=== PATIENT | female | born 1975 | race Caucasian/White ===

== ENCOUNTER 2023-09-23 06:00 | Outpatient (RCR) | payer OTHER, SELFPAY | END 2023-10-03 23:59 | disposition home or self-care (01) | LOC: TPT 06:00 | PROVIDERS: Visit Provider Family Medicine | DX: M25.551 Pain in right hip (principal) | CPT/HCPCS: 97110; 97161 ==

== ENCOUNTER 2023-10-04 06:00 | Outpatient (RCR) | payer OTHER, SELFPAY | END 2023-11-02 23:59 | disposition home or self-care (01) | LOC: TPT 06:00 | PROVIDERS: Visit Provider Family Medicine | DX: M25.551 Pain in right hip (principal) | CPT/HCPCS: 97110; 97140 ==

== ENCOUNTER → 2024-08-12 11:52 | Outpatient (BNVA) | payer OTHER, SELFPAY | PROVIDERS: Visit Provider Family Medicine | DX: Z00.00 Encounter for general adult medical examination without abnormal findings (principal) | CPT/HCPCS: 80053; 84443; 85025 ==

== ENCOUNTER 2024-09-22 13:18 | Outpatient (CLI) | payer OTHER, SELFPAY ==
--- NOTE | 2024-09-22 13:20 | MM_ITS ---
WS: [id number] BILATERAL 3D TOMOSYNTHESIS DIGITAL SCREENING MAMMOGRAM WITH CAD CLINICAL INFORMATION: Z12.39 - Encounter for other screening for malignant neop... HISTORY: Screening mammogram. No current complaints. COMPARISON: None. TECHNIQUE: Bilateral CC and MLO. FINDINGS: The breast are composed of extremely dense tissue, which can limit the detection of small underlying mass lesions. No suspicious focal mass, asymmetry, calcifications, or architectural distortion. No evidence of malignancy. MM/MM [facility] tomosynthesis [id number] IMPRESSION: DENSITY: The breasts are extremely dense, which lowers the sensitivity of mammo graphy. BI-RADS: 1 - Negative FOLLOW UP: 1 Year Follow-up Recommend return to annual screening mammography.
== END 2024-09-22 13:19 | disposition home or self-care (01) ==
LOC: MOBLMAM 13:19
PROVIDERS: PCP Family Medicine; Visit Provider Family Medicine
DX: Z12.31 Encounter for screening mammogram for malignant neoplasm of breast (principal); R92.343 Mammographic extreme density, bilateral breasts
CPT/HCPCS: 77063; 77067

== ENCOUNTER → 2024-12-30 14:33 | Outpatient (BNVA) | payer OTHER, SELFPAY | PROVIDERS: PCP Family Medicine; Visit Provider Family Medicine | DX: M79.661 Pain in right lower leg (principal) | CPT/HCPCS: 85379 ==

== ENCOUNTER 2025-02-02 14:42 | Outpatient (CLI) | payer OTHER, SELFPAY ==
--- NOTE | 2025-02-02 14:45 | USCV_ITS ---
Sonia Albrecht (Sonia) Age: 49 Gender: F : 1975 Exam Date: 02/02/2025 15:03 Ordering Phys: Dolores Celestin MD Technologist: ELO Exam Location: [facility] Indication: RT LEG SWELLING HISTORY: Lower extremity swelling-RIGHT PROCEDURES: Venous duplex imaging was performed in only the right lower extremity. The following venous structures were evaluated: common femoral vein, profunda vein, proximal portion of the greater saphenous vein, superficial femoral vein, and the popliteal vein. In addition, the posterior tibial and peroneal trunk were evaluated. FINDINGS: Normal 2-D Doppler and augmentation and compressibility throughout the lower extremity venous structures. Additional imaging through the proximal calf veins also reveals no thrombus. Limited evaluation of the greater saphenous vein is patent with no thrombus. CONCLUSIONS No DVT right lower extremity. Dr. Carito Castro DO (Electronically Signed) Final Date: 02 February 2025 15:30 S
== END 2025-02-02 14:43 | disposition home or self-care (01) ==
LOC: RAD 14:51
PROVIDERS: PCP Family Medicine; Visit Provider Family Medicine
DX: M79.89 Other specified soft tissue disorders (principal)
CPT/HCPCS: 93971

== ENCOUNTER 2025-02-11 15:16 | Outpatient (CLI) | payer OTHER, SELFPAY ==
--- NOTE | 2025-02-11 15:30 | USR_ITS ---
PROCEDURE INFORMATION: Exam: US Duplex Right Lower Extremity Arteries Or Arterial Bypass Grafts Exam date and time: 02/11/2025 3:36 PM Age: 49 years old Clinical indication: Pain; Leg, lower; Right; Additional info: RT leg swelling x 3 weeks, neg d dimer TECHNIQUE: Imaging protocol: Right Real-time duplex scan of the arteries or arterial bypass grafts of the right lower extremity with 2-D baez scale, color Doppler flow and spectral waveform analysis. Images documented and saved. COMPARISON: [place] [id number] 02/02/2025 3:03 PM FINDINGS: Right common femoral artery: No occlusion or significant stenosis. Normal waveform. No pseudoaneurysm in the inguinal region. Right superficial femoral artery: No occlusion or significant stenosis. Normal waveform. Right popliteal artery: No occlusion or significant stenosis. Normal waveform. Right calf/foot arteries: No occlusion or significant stenosis in the visualized arteries. Normal waveforms. Dorsalis pedis artery is patent. Right BAR = 1.0 Soft tissues: No hematoma or [place]. US/[place] [id number] IMPRESSION: No stenosis or occlusion.
== END 2025-02-11 15:17 | disposition home or self-care (01) ==
LOC: RAD 15:17
PROVIDERS: PCP Family Medicine; Visit Provider Family Medicine
DX: M79.89 Other specified soft tissue disorders (principal)
CPT/HCPCS: 93926

== ENCOUNTER → 2025-02-24 13:44 | Outpatient (BNVA) | payer OTHER, SELFPAY | PROVIDERS: PCP Family Medicine; Visit Provider Family Medicine | DX: M25.461 Effusion, right knee (principal) | CPT/HCPCS: 73562 ==

== ENCOUNTER → 2025-03-24 13:48 | Outpatient (BNVA) | payer OTHER, SELFPAY | PROVIDERS: PCP Family Medicine; Visit Provider Family Medicine | DX: Z12.4 Encounter for screening for malignant neoplasm of cervix (principal) | CPT/HCPCS: 87624 ==